=== PATIENT | female | born 1980 | race Caucasian/White ===

== ENCOUNTER → 2016-09-06 | Outpatient (CLI) | payer OTHER ==
[~2016-09-06] MED LIST: BIRTH CONTROL; MULT1TAB84 PO
[2016-09-06 14:45] LABS: BLOOD, URINE NEG (NEG); GLUCOSE,URINE NEG (NEG); HEMATOCRIT 39.5 % (35.0-46.0); KETONE, URINE NEG (NEG); MEAN CELL VOLUME 87.7 FL (80.0-100.0); MEAN CORPUSCULAR HEMOGLOBIN 29.5 PG (27.0-34.0); MEAN CORPUSCULAR HGB CONC 33.6 % (32.0-36.0); NITRITE,URINE NEG (NEG); PLATELET COUNT 327 TH/MM3 (150-450); RED BLOOD COUNT 4.51 MIL/MM3 (4.00-5.30); RED CELL DISTRIBUTION WIDTH 12.1 % (11.6-17.2); REVIEW FLAG FINAL; WHITE BLOOD COUNT 7.3 TH/MM3 (4.0-11.0)
[2016-09-06 14:46] LABS: METHOD OF COLLECTION CLEAN CATCH; URINE COLOR YELLOW (YELLW/STRAW)
[2016-09-06 14:50] LABS: COMMENT (UR) CULT NOT INDICATED; CULTURE IF INDICATED CULT NOT INDICATED
== END ==
LOC: PHPRE 12:23
PROVIDERS: ATTEND Obstetrics & Gynecology
DX: Z01.812 Encounter for preprocedural laboratory examination (principal); R10.32 Left lower quadrant pain; R10.31 Right lower quadrant pain; N80.1 Endometriosis of ovary; N80.3 Endometriosis of pelvic peritoneum
CPT/HCPCS: 81001; 85027

== ENCOUNTER → 2016-09-10 | Outpatient (CLI) | payer OTHER ==
[~2016-09-10] MED LIST changes: -BIRTH CONTROL
== END ==
LOC: PHSDC 10:10
PROVIDERS: ATTEND Obstetrics & Gynecology
DX: Z01.812 Encounter for preprocedural laboratory examination (principal)

== ENCOUNTER → 2016-09-12 | Day surgery (SDC) | payer OTHER ==
[~2016-09-12] VITALS: Ht 172.7 cm; Wt 70.5 kg
[~2016-09-12] MED LIST changes: +ACETAMINOPHEN/HYDROcodone 325 MG/7.5 MG TAB ONE; +FAMOTIDINE 20 MG/2 ML VIAL ONE; +LACTATED RINGER'S 1000 ML INJ 1,000 ML ONE; +LIDOCAINE HCL 1% 20 ML VIAL ONE; +MEPERIDINE HCL 25 MG/ML VIAL ONE; +MIDAZOLAM HCL 2 MG/2 ML VIAL ONE; +fentaNYL CITRATE 250 MCG/5 ML AMP ONE
[2016-09-12 08:19] VITALS: BP 128/90; PULSE 105; RESP 18; TEMP 97.6; O2SAT 100
[2016-09-12 11:25] VITALS: PULSE 77
[2016-09-12 13:15] VITALS: BP 113/72; PULSE 86; RESP 16; TEMP 98.6; O2SAT 98
--- NOTE | 2016-11-11 23:55 | PD.OP ---
Operative Report Date of Surgery: Sep 12, 2016 Preoperative Diagnosis: (1) Left lower quadrant pain (2) Right lower quadrant pain Postoperative Diagnosis: (1) Endometriosis of ovary (2) Endometriosis of pelvic peritoneum (3) Left lower quadrant pain (4) Right lower quadrant pain Procedure: laparoscopy with left ovarian cystectomy x4, lysis of adhesions of left ovary and tube to peritoneum Anesthesia: general endotracheal, Dr. Lynch Surgeon: Aury Espinoza Plastic Tile Setter(s): Francine Patel Surgeon: n/a Operation and Findings: The patient was transferred to the OR table. General anesthesia was induced with intubation, and the patient was then placed in dorso-lithotomy position in low stirrups, prepped with iodine and draped. Time out was done. An open-sided speculum was placed in the vagina and the cervix was grasped with a single-tooth tenaculum. The other instruments were removed and I re-gloved. A 5 mm incision was made in the umbilicus. @ liters of CO2 were instilled through a Veress needle without incident. After introducing the camera and making an initial assessment, 5 mm ports were placed in the left and right lower quadrants using transillumination to avoid large blood vessels. Photos were taken documenting were endometriosis with endometriomas evident on the left ovary, and small pipoint white, red and brown lesions on the bladder peritoneum. Employing the Harmonic ACS device and a grasper, the adhesions involving the left adnexa were lysed. The largest endometrioma was grasped and ruptured, followed by pulling out as completely as possible the wall of the lesion. This was repeated with two other endometriomas, and a foourth cyst was ruptured but was left in situ because it appeared to be follicular by its fluid contents. The pelvis was irrigated thoroughly. The bladder peritoneum was inspected more closely, with the peritoneum noted to be fixed and rigid, likely scarred in previous excision. The risk of bladder injury and bleeding for lesions that were not symptomatic by exam or history was not deemed in the patient's best interest, and this was left intact. The pelvis was thooroughly irrigated, the ovary was checked for hemostasis, requiring minimal cautery, then wrapped in Intercede. The pneumoperitoneum is released, the ports removed, and the incisions closed subcuticularly with 4-0 Monocryl, then sealed with Dermabond. The uterine manipulator was removed. The patient was awakened and transferred to the PACU awake and breathing on her own. Sponge, needle and instrument counts were correct. Aury Espinoza MD Nov 11, 2016 23:55
== END | disposition home or self-care (01) ==
LOC: PHSDC 07:56
PROVIDERS: ATTEND Obstetrics & Gynecology
DX: N80.1 Endometriosis of ovary (principal); N80.3 Endometriosis of pelvic peritoneum; N83.202 Unspecified ovarian cyst, left side; N94.10 Unspecified dyspareunia
CPT/HCPCS: 00840; 58662; 86850; 86900; 86901; 86920; 88305; C1765; J2175; J2250; J3010; J7120; 88304